=== PATIENT | male | born 1955 | race Caucasian/White ===

== ENCOUNTER 2016-07-23 08:27 | Day surgery (SDC) | payer OTHER ==
--- NOTE | ~2016-07-23 | EGD ---
EGD REPORT [facility] [address] [place] [id number] NAME: TERESE DONG : 57 STATUS : REG [facility]#: [id number] AGE: 61 ADM/REG DATE : 07/23/16 MR#: [id number] REPORT SERV DATE: 07/23/16 DICTATED BY: YUVAL WALTERS DATE: 07/23/16 REPORT STATUS : Draft [facility]: [facility] DATE: 07/23/16 [facility] Patient Name: Terese Dong Date of : 1955 Attending MD: YUVAL WALTERS MD Procedure Date No Time: 07/23/2016 Procedure: Colonoscopy Indications: Screening for colorectal malignant neoplasm Referring MD: YESSY YUEN Medicines: as per anesthesia Complications: No immediate complications. Procedure: After I obtained informed consent, the scope was passed under direct vision. Throughout the procedure, the patient's blood pressure, pulse, and oxygen saturations were monitored continuously. The PCF [id number] was introduced through the anus and advanced to the cecum, identified by appendiceal orifice and ileocecal valve. The colonoscopy was performed without difficulty. The patient tolerated the procedure. The quality of the bowel preparation was adequate to identify polyps. Findings: The perianal and digital rectal examinations were normal. Many small and large-mouthed diverticula were found in the sigmoid colon, in the descending colon and in the transverse colon. Impression: - Diverticulosis in the sigmoid colon, in the descending colon and in the transverse colon. Recommendation: - Repeat colonoscopy in 10 years for surveillance. Procedure Code(s): --- Professional --- 60572, Colonoscopy, flexible, proximal to splenic flexure; diagnostic, with or without collection of specimen(s) by brushing or washing, with or without colon decompression (separate procedure) Diagnosis Code(s): --- Professional --- K57.30, Diverticulosis of large intestine without perforation or abscess without bleeding Z12.11, Encounter for screening for malignant neoplasm of colon CPT copyright 2013 [employer]. All rights reserved. EGD REPORT [facility] [address] [place] [address] [place] [address] NAME: TERESE DONG : [birth year] STATUS : REG [facility] PAT#: [id number] AGE: 61 ADM/REG DATE : 07/23/16 MR#: [id number] REPORT SERV DATE: 07/23/16 DICTATED BY: YUVAL WALTERS. 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 YUVAL WALTERS MD 07/23/2016 10:41 AM This report has been signed electronically. Number of Addenda: 0 Note Initiated On: 07/23/2016 10:[address] [place] [address] [place] [address]
[~2016-07-23 08:27] MED LIST: ASAB PO; CLARITD24H PO; CO Q-10100 MG PO; COZ50 PO; CRESTOR10 PO; MULTIPLE VIT PO
== END 2016-07-23 23:59 | disposition home or self-care (01) ==
LOC: DMU 08:27
PROVIDERS: Internal Medicine Gastroenterology
PROC: 0DJD8ZZ Inspection of Lower Intestinal Tract, Via Natural or Artificial Opening Endoscopic (ICD-10-PCS; principal; 2016-07-23 10:00)
DX: Z12.11 Encounter for screening for malignant neoplasm of colon (principal); K57.30 Diverticulosis of large intestine without perforation or abscess without bleeding; I10 Essential (primary) hypertension; E78.00 Pure hypercholesterolemia, unspecified